=== PATIENT | male | born 1955 | race Caucasian/White ===

== ENCOUNTER 2017-11-06 08:05 | Emergency (ER) | payer MEDICARE, OTHER ==
[~2017-11-06] VITALS: Ht 165.1 cm; Wt 95.0 kg
[~2017-11-06 08:05] MED LIST: ASPI-529 PO; ATEN-169 PO; BUSP5TAB3 PO; CITA-278 PO; POTA2TAB17 PO
[2017-11-06 08:48] LABS: BASOPHILS # (AUTO) 0.1 X10'3 (0-0.2); BASOPHILS % (AUTO) 1.2 % (0-1); EOSINOPHILS # (AUTO) 0.1 X10'3 (0-0.9); EOSINOPHILS % (AUTO) 1.9 % (0-6); HEMATOCRIT 44.1 % (42.0-52.0); HEMOGLOBIN 15.4 g/dl (14.0-17.9); LYMPHOCYTES # (AUTO) 1.1 X10'3 (1.1-4.8); LYMPHOCYTES % (AUTO) 24.4 % (21-51); MEAN CORPUSCULAR HEMOGLOBIN 34.1 PG (27.0-31.0); MEAN CORPUSCULAR VOLUME 97.5 FL (78-98); MEAN PLATELET VOLUME 7.6 FL (7.4-10.4); MONOCYTES # (AUTO) 0.4 X10'3 (0-0.9); MONOCYTES % (AUTO) 9.3 % (2-12); NEUTROPHILS % (AUTO) 63.2 % (42-75); PLATELET COUNT 141 X10'3 (140-440); RED BLOOD COUNT 4.52 X10'6 (4.70-6.10); WHITE BLOOD COUNT 4.7 X10'3 (4.5-11.0)
[2017-11-06 08:59] LABS: PARTIAL THROMBOPLASTIN TIME 25 SECONDS (22-32); PROTHROMBIN TIME 10.8 SECONDS (9.0-12.0)
[2017-11-06 09:02] LABS: ALANINE AMINOTRANSFERASE 29 U/L (12-78); ALBUMIN 3.1 G/DL (3.4-5.0); ALKALINE PHOSPHATASE 52 IU/L (46-116); ANION GAP 10 (8-16); ASPARTATE AMINO TRANSFERASE 21 U/L (10-37); BILIRUBIN,TOTAL 1.6 MG/DL (0.1-1.0); BLOOD UREA NITROGEN 9 MG/DL (7-18); BUN/CREATININE RATIO 8.4 (5.4-32.0); CALCIUM 8.2 MG/DL (8.5-10.1); CHLORIDE 102 MMOL/L (99-107); CREATININE 1.07 MG/DL (0.60-1.10); GLUCOSE 93 MG/DL (70-104); POTASSIUM 3.9 MMOL/L (3.5-5.1); SODIUM 138 MMOL/L (135-145); TOTAL PROTEIN 6.2 G/DL (6.4-8.2); eGFR 70 ML/MIN
[2017-11-06 09:06] LABS: ETHANOL 0.111 GM/DL (0.0-0.010); TROPONIN I < 0.04 NG/ML (0.0-0.05)
[2017-11-06 09:13] LABS: CLARITY,URINE CLEAR (Clear); COLOR,URINE YELLOW (Yellow); GLUCOSE, URINE NEGATIVE (Neg); KETONES,URINE TRACE mg/dl (Neg); LEUKOCYTE ESTERASE ,URINE NEGATIVE (Neg); NITRITES, URINE NEGATIVE (Neg); OCCULT BLOOD,URINE NEGATIVE (Neg); PH,URINE 5.5 (4.8-8.0); PROTEIN,URINE TRACE mg/dl (Neg); UROBILINOGEN,URINE 0.2 E.U/dL (0.2-1.0)
[2017-11-06 09:21] LABS: UA COLLECTION TYPE VOIDED
[2017-11-06 09:23] LABS: URINE AMPHETAMINE SCREEN NEGATIVE (Neg); URINE BARBITUATE SCREEN NEGATIVE (Neg); URINE BENZODIAZEPINES SCREEN NEGATIVE (Neg); URINE CANNABINOID SCREEN POSITIVE (Neg); URINE COCAINE SCREEN NEGATIVE (Neg); URINE METHADONE SCREEN NEGATIVE (Neg); URINE OPIATE SCREEN NEGATIVE (Neg); URINE PHENCYCLIDINE SCREEN NEGATIVE (Neg)
[2017-11-06 09:27] LABS: FINE GRANULAR CAST 0-3 /LPF (NEGATIVE); MUCUS STRANDS FEW /LPF (Neg); SQUAMOUS EPITHELIAL CELL,UR FEW /LPF (FEW); WBC,URINE 0-4 /HPF (0-4)
[2017-11-06 09:28] LABS: HYALINE CASTS 0-3 /LPF (NEGATIVE)
[2017-11-06 09:34] LABS: RBC,URINE NONE SEEN /HPF (0-2)
[2017-11-06 09:35] LABS: BACTERIA,URINE 1+ /HPF (Neg)
[2017-11-06 11:01] VITALS: BP 152/94
== END 2017-11-06 11:03 | disposition home or self-care (01) ==
LOC: ER 08:08
DX: F10.129 Alcohol abuse with intoxication, unspecified (principal); F12.929 Cannabis use, unspecified with intoxication, unspecified; G89.29 Other chronic pain; Z79.82 Long term (current) use of aspirin; Z79.899 Other long term (current) drug therapy; Z98.890 Other specified postprocedural states; Y90.0 Blood alcohol level of less than 20 mg/100 ml
CPT/HCPCS: 36415; 71045; 80053; 80305; 80320; 81001; 82948; 84484; 85025; 85610; 85730; 93005; 99285

== ENCOUNTER 2023-03-01 21:29 | Emergency (ER) | payer MEDICARE ==
[~2023-03-01] VITALS: Ht 177.8 cm; Wt 90.0 kg
[~2023-03-01 21:29] MED LIST changes: -ASPI-529 PO; -ATEN-169 PO; -BUSP5TAB3 PO; -CITA-278 PO; +NO HOME MEDS; -POTA2TAB17 PO
[2023-03-01 21:33] VITALS: TEMP 97.5
[2023-03-01] MEDS ORDERED: normal saline 1000ml 1,000 ML IV ONE (21:45)
--- NOTE | 2023-03-01 22:20 | NUR ---
pt is a&o x4, steady on his feet. VSS. Pt was given a cab
[2023-03-01 22:38] VITALS: BP 112/61; PULSE 54; O2SAT 98
== END 2023-03-01 22:39 | disposition home or self-care (01) ==
LOC: ER 21:30
DX: F10.129 Alcohol abuse with intoxication, unspecified (principal); W19.XXXA Unspecified fall, initial encounter; Y93.89 Activity, other specified; Y92.89 Other specified places as the place of occurrence of the external cause; Y99.8 Other external cause status; Y90.9 Presence of alcohol in blood, level not specified
CPT/HCPCS: 93005; 99283